=== PATIENT | male | born 1995 | race Hispanic/Latino ===

== ENCOUNTER 2020-08-12 15:10 | Emergency (ER) | payer MEDICAID, OTHER | END 2020-08-12 16:09 | disposition home or self-care (01) | LOC: EDH 15:10 | DX: H53.8 Other visual disturbances (principal); F41.9 Anxiety disorder, unspecified; F31.9 Bipolar disorder, unspecified; Z72.0 Tobacco use ==

== ENCOUNTER → 2020-11-09 | Emergency (ER) | payer SELFPAY ==
[~2020-11-09] VITALS: Ht 177.8 cm; Wt 59.9 kg
[~2020-11-09] MED LIST: TETANUS/DIPHTHERIA TOXOID [ADULT] 0.5 ML VIAL IM SCH
[2020-11-09 07:22] VITALS: BP 132/88
[2020-11-09 08:37] VITALS: BP 126/74
== END | disposition home or self-care (01) ==
LOC: EDH 07:09
DX: S51.812A Laceration without foreign body of left forearm, initial encounter (principal); S50.812A Abrasion of left forearm, initial encounter; S50.811A Abrasion of right forearm, initial encounter; W26.8XXA Contact with other sharp object(s), not elsewhere classified, initial encounter; Y93.89 Activity, other specified; Y92.89 Other specified places as the place of occurrence of the external cause; Y99.8 Other external cause status
CPT/HCPCS: 90471; 90714